=== PATIENT | male | born 1945 | race Asian ===

== ENCOUNTER → 2017-12-12 13:22 | Outpatient (CLI) | payer OTHER, SELFPAY ==
[2017-12-03 14:35] VITALS: TEMP 36.2
--- NOTE | 2017-12-12 | DI.RAD.S_ITS ---
PROCEDURE: FL BARIUM SWALLOW W SPEECH INDICATIONS: 72 year-old male with recent stroke. Assess for aspiration. TECHNIQUE: Examination was conducted in conjunction with speech pathology per standard protocol. In the lateral projection, filming was performed of the patient swallowing. AP projection filming may also be performed with patient swallowing. COMPARISON: None. FINDINGS: Function: The oral preparatory phase demonstrates incomplete containment, with premature spillage of ingested materials into the vallecula. The subsequent oral propulsive phase, pharyngeal phase, and esophageal phase of swallowing also appear normal with all proffered substances. There is trace laryngotracheal penetration without aspiration on thin liquids. No pathologic vallecular pooling. Morphology: No cricopharyngeal bar is identified. No cervical esophageal webs. No Zenker's diverticulum. No strictures. IMPRESSION: 1. Trace laryngotracheal penetration without aspiration on thin liquids. No spontaneous cough reflex. 2. Incomplete containment during the oral preparatory phase. Dictated by: Elpidio Tyler M.D. on 12/12/2017 at 14:23 Approved by: Elpidio Tyler M.D. on 12/12/2017 at 14:25
--- NOTE | 2017-12-12 15:42 | ST.IPIE ---
Past Medical History (Last Updated 12/03/17 @ 15:59 by Lc Moon DO) Atrial fibrillation (Acute Medical) Brain injury (Acute Medical) Injury of head with subdural hemorrhage (Acute Medical) ST IP Initial Evaulation Report [employer] Modified Barium Swallow Study Start: 12/12/17 14:37 Freq: Status: Active Protocol: Document 12/12/17 14:41 TLC (Rec: 12/12/17 15:42 TLC [id number]) Modified Barium Swallow Study Total Time Visit Start Time 01:45 Visit Stop Time 02:15 Total Visit Minutes 30 Referral Referring Physician Gagandeep Robledo Reason for Referral Rule out aspiration and guide plan of care Setting Setting Outpatient Care Patient Information Identification Type Name Patient History Patient is a 72 year old male who had a CVA 08/20/17. He has been on nectar thickened liquids since then. He has not had a previous MBSS. He is currently being seen by [facility] for strengthening and dysphagia management. Patient Positioning Position View Lateral Imaging Lateral View Textures Administered Trials Presented Thin Liquid via Spoon Thin Liquid via Cup [place] Liquid via Spoon [place] Liquid via Cup [place] Liquid via Spoon Pudding Thick Liquid via Spoon Dysphagia Blenderized Textures Regular Textures Oral Phase Source: MBSIMP (TM) (C) Bolus Specific Scoring Grid Lip Closure Minimal Impairment Tongue Control During Bolus Hold Moderate Impairment Bolus Prep/Mastication Mild Impairment Bolus Transport/Lingual Motion Moderate Impairment Oral Residue Mild Impairment Nasal Regurgitation No Additional Oral Phase Observations Observed mildly reduced lingual coordination during oral mech exam which contributes to slow prolonged chewing/mashing and repetitive /disorganized tongue motion during bolus transport of thicker textures. Weak base/ back of tongue muscles results in posterior escape of less than half of bolus with thin liquids. Oral residue collection on tongue observed with all trials which improved with second swallow. Initiation of pharyngeal swallow was delayed - bolus head in the pyriforms during thin liquid trials and bolus head in vallecula with nectar thick liquid trials. Pharyngeal Phase Source: MBSIMP (TM) (C) Bolus Specific Scoring Grid Delayed Initiation of Pharyngeal Swallow Yes Soft Palate Elevation No Impairment (WNL) Tongue Base Strength/Range of Motion Mild Impairment Residue Along the Tongue Base Yes Clearance of Residue Along Tongue Base WFL Laryngeal Elevation Mild Impairment Anterior Hyoid Movement Mild Impairment Epiglottic Range of Motion WFL Vallecular Residue Yes Clearance of Vallecular Residue WFL Laryngeal Vestibular Closure Mild Impairment Pharyngeal Stripping Wave No Impairment (WNL) Pharyngeal Contraction Minimal Impairment Posterior Pharyngeal Wall Residue Yes Upper Esophageal Sphincter Opening Minimal Impairment Residue in the Pyriform Sinuses Yes Esophageal Clearance Upright Position WFL Pharyngoesophageal Backflow Observed No: Not observed fully in A-P view Additional Pharyngeal Phase Observations Significant vallecular and pyriform residue with pudding which improved, but did not clear fully with second swallow. Patient independently implemented second swallow with most trials. Partial laryngeal elevation and incomplete laryngeal vestibular closure resulted in penetration of thin liquids and nectar thick liquids. A/P View Esophageal Observations Esophageal Function Esophageal clearance was not fully observed in A-P view; however, bolus appeared to clear in the lateral positioning Clinical Impressions Dysphagia Type Oropharyngeal Findings Patient presents with Mild- moderate oropharyngeal dysphagia significant for premature posterior escape of liquid boluses, incomplete laryngeal vestibular closure resulting in penetration of thin and nectar thick liquids and oral and pharyngeal residue. No aspiration observed during the study. Patient is a good candidate for oral and pharyngeal strengthening exercises to include: Tasia Maneuver, Pedro Maneuver, Shaker Exercise, Effortful Swallow. Trial of chin tuck improved oral containment, but resulted in increased penetration therefore is not recommended. Rehabilitation Potential Good Patient Appropriate for Therapy Yes Recommendations Diet Liquids Order Thin Diet Order Regular Medication Recommendation As Tolerated Additional Dietary Needs Single Sips Reminders to Use Strategies Aspiration Precautions Recommended Precautions Upright at 90 Degrees Small Bites/Sips Double Swallow Additional Precautions Slow rate Treatment Plan Therapy Recommendations Compensatory Strategy Education Additional Therapy Recommendations Oral pharyngeal strengthening exercises Compensatory Strategies Recommendations Sitting Upright (90 deg) Double Swallow Placement Recommendation After Discharge Home with Home Health
== END ==
DX: I69.391 Dysphagia following cerebral infarction (principal); R13.10 Dysphagia, unspecified
CPT/HCPCS: 74230; 92611

== ENCOUNTER 2018-10-03 18:35 | Emergency (ER) | payer OTHER, SELFPAY ==
[2018-10-03 18:59] VITALS: BP 139/86; PULSE 68; TEMP 36.3; O2SAT 97; BMI 22.9
--- NOTE | 2018-10-03 19:34 | ED.SKABFB ---
HPI - Skin/Abscess/Foreign Bdy <Britney Gómez PA-C - Last Filed: 10/03/18 21:49> General Chief complaint: Skin/Abscess/Foreign Body Stated complaint: REDNESS ON MOLE ON HIS BACK Time Seen by Provider: 10/03/18 19:45 Source: patient Mode of arrival: ambulatory Limitations: no limitations History of Present Illness HPI narrative: this 73-year-old male comes in due to concern for possible skin infection. He had a biopsy done on his right shoulder 8 days ago, and his noted that there was redness and it looked like some streaking around it this morning. She did put a bandage on it. She states that it is actually looking different now, less red around the wound borders. He states that he is feeling fine, he denies any fever or soreness at the spot, states that it is slightly itchy. He denies new medical history or medication changes since last here. Related Data Previous Rx's Medication Instructions Recorded cephalexin [Keflex] 500 mg PO Q6H 7 Days #28 cap 10/03/18 Allergies Allergy/AdvReac Type Severity Reaction Status Date / Time No Known Drug Allergies Allergy Verified 10/03/18 19:06 Review of Systems <Britney Gómez PA-C - Last Filed: 10/03/18 21:49> Review of Systems ROS Unobtainable: All systems reviewed & are unremarkable except as noted in HPI and below PFSH <Britney Gómez PA-C - Last Filed: 10/03/18 21:49> Medical History Atrial fibrillation (Acute) Brain injury (Acute) Injury of head with subdural hemorrhage (Acute) Social History Smoking Status: Former smoker Social History Smoking Status: Former smoker Exam <Britney Gómez PA-C - Last Filed: 10/03/18 21:49> Narrative Exam Narrative: GENERAL APPEARANCE: Patient sitting comfortably, in no distress. LUNGS: Clear to auscultation bilaterally. HEART: Rate and rhythm regular without murmur, normal S1 and S2, no S3 or S4. DERMATOLOGIC: Right scapula there is a 4 mm nummular scabbed bx site with surrounding erythema at the margins to 1 mm. there is clearing around the wound distal to that, and then some patchy pink erythema that this is is in a square pattern. No tenderness, no wound fluctuance, induration or d/c Initial Vital Signs Initial Vital Signs: Vital Signs Temperature 97.3 F L 10/03/18 18:59 Pulse Rate 68 10/03/18 18:59 Blood Pressure 139/86 10/03/18 18:59 Pulse Oximetry 97 10/03/18 18:59 <Merrick Patiño DO - Last Filed: 10/04/18 03:26> Initial Vital Signs Initial Vital Signs: Vital Signs Temperature 97.3 F L 10/03/18 18:59 Pulse Rate 68 10/03/18 18:59 Blood Pressure 139/86 10/03/18 18:59 Pulse Oximetry 97 10/03/18 18:59 Course <Britney Gómez PA-C - Last Filed: 10/03/18 21:49> Vital Signs - 8 hr 10/03/18 20:00 Pulse Rate 70 Respiratory Rate 16 Blood Pressure [Left Arm] 132/70 Pulse Oximetry 98 <Merrick Patiño DO - Last Filed: 10/04/18 03:26> Vital Signs - 8 hr 10/03/18 20:00 Pulse Rate 70 Respiratory Rate 16 Blood Pressure [Left Arm] 132/70 Pulse Oximetry 98 Discharge Plan Departure Patient Disposition: Home Clinical Impression: Dermatitis Discharge Date/Time: 10/03/18 20:15 Interventions: ED Discharge Assessment Last Done: 10/03/18 20:15 Instructions: DI for Contact Dermatitis Activity Restrictions/Additional Instructions: The mole that you had biopsied last week looks a little bit irritated, however right now the skin does not appear infected. It looks more like there might be some irritation from adhesive or something rubbing around the area. You can use a little bit of the bacitracin antibiotic ointment that I gave you around the area twice daily as needed. Please keep it open to air as much as possible, do not apply any dressings or bandages. if the wound looks acutely worse again tomorrow, i.e. more redness again, painful, draining pus, or you have any fever, you can go ahead and fill the prescription for antibiotic that I gave you and start on it. Please see your PCP or client account manager for recheck in a few days if you do need to start the antibiotic. Return to the EDif rapidly spreading or new symptoms such as fever. we appreciate your patience with long wait this evening Prescriptions: New cephalexin [Keflex] 500 mg capsule 500 mg PO Q6H 7 Days Qty: 28 RF: 0 Referrals: Gagandeep Robledo MD [Other] <Merrick Patiño DO - Last Filed: 10/04/18 03:26> Cosign ED Attending Rina Attestation: I was immediately available in the department for consultation. Documentation has been reviewed. I agree with assessment and plan.
--- NOTE | 2018-10-03 19:52 | PC.NURSE ---
Pt had mole removed at right upper back, pt presents with concern for red halo around surgical site.
[2018-10-03 20:00] VITALS: BP 132/70; PULSE 70; RESP 16; O2SAT 98
== END 2018-10-03 20:15 | disposition home or self-care (01) ==
PROVIDERS: Emergency Provider Internal Medicine
DX: L30.9 Dermatitis, unspecified (principal)
CPT/HCPCS: 99282